=== PATIENT | male | born 1945 | race Two or more races ===

== ENCOUNTER 2020-05-17 07:47 | Inpatient (IN) | payer OTHER ==
[~2020-05-17] VITALS: Ht 177.8 cm; Wt 108.0 kg
[2020-05-17 09:40] LABS: Eosinophils # (auto) 0.1 10 ^3/uL (0-0.8); Hematocrit 46.2 % (41.0-53.0); Monocytes # (auto) 0.5 10 ^3/uL (0-1.3)
[2020-05-17 09:42] LABS: Basophils # (auto) 0.1 10 ^3/uL (0-0.2); Basophils % (auto) 0.9 % (0.0-2.0); Eosinophils % (auto) 2.5 % (0.0-7.0); Hemoglobin 15.7 g/dL (13.5-17.5); Lymphocytes # (auto) 1.1 10 ^3/uL (0.4-5.4); Mean Corpuscular Hemoglobin 34.9 pg (28.0-32.0); Mean Corpuscular Volume 102.7 fL (80.0-100.0); Monocytes % (auto) 8.4 % (0.0-12.0); Neutrophils # (auto) 4.2 10 ^3/uL (1.6-8.6); Neutrophils % (auto) 69.2 % (37.0-80.0); Platelet Count (auto) 151 10^3/uL (140-450); Red Cell Distribution Width 12.9 % (11.8-14.3)
[2020-05-17 10:00] LABS: Albumin 3.7 g/dL (3.4-5.0); Calcium 8.7 mg/dL (8.5-10.1); Potassium 3.8 mmol/L (3.5-5.1)
[2020-05-17 10:08] LABS: BUN/Creatinine Ratio 16.2; Bilirubin, Total 0.8 mg/dL (0.2-1.0); Total Protein 7.1 g/dL (6.4-8.2)
[2020-05-17] MEDS ORDERED: ASPirin 81 mg TAB PO ONE (10:30)
[2020-05-17] MEDS ORDERED: MECLIZINE HCL 25 MG TAB PO ONE (10:30)
[2020-05-17] MEDS ORDERED: ENOXAPARIN SOD 100 MG/1 ML SYRINGE SC ONE (10:30)
[2020-05-17] MEDS: SOD CHL 0.45% 1,000 ML IV SCH (14:55)
[2020-05-17] MEDS ORDERED: ONDANSETRON HCL 4 MG/2 ML VIAL IV PRN ×3 (15:00→15:45)
[2020-05-17] MEDS ORDERED: MORPHINE SULF INJ 2 MG/ML SYRINGE 1ML IV PRN ×3 (15:00→15:45)
[2020-05-17] MEDS ORDERED: ALUM & MAG HYDROX-SIMETH LIQ(MAALOX) 30 ML PO ONE (15:00)
[2020-05-17] MEDS ORDERED: DOCUSATE SOD 100 MG CAP PO PRN (15:00)
[2020-05-17] MEDS ORDERED: MORPHINE SULFATE 4 MG/ML SYR/VIAL IV PRN (15:00)
[2020-05-17] MEDS ORDERED: NITROGLYCERIN 0.4 MG SL TAB SL PRN ×3 (15:00→15:45)
[2020-05-17] MEDS ORDERED: ACETAMINOPHEN 325 MG TAB PO PRN (15:00)
[2020-05-17] MEDS ORDERED: LORazepam 0.5 MG TAB PO PRN (15:00)
[2020-05-17] MEDS ORDERED: HYDROcodone-ACET 5/325MG TAB PO PRN (15:00)
[2020-05-17] MEDS ORDERED: LISI2.5T47 PO (17:30)
[2020-05-17] MEDS ORDERED: ASPI-498 PO (17:30)
[2020-05-17] MEDS ORDERED: ATOR1TAB PO (17:30)
[2020-05-17] MEDS ORDERED: CLOP75TA41 PO (17:30)
[2020-05-17] MEDS ORDERED: ALUM & MAG HYDROX-SIMETH LIQ(MAALOX) 30 ML PO PRN (18:00)
[2020-05-17] MEDS ORDERED: hydrALAZINE HCL 20 MG/ML VL IV PRN (18:15)
[2020-05-17] MEDS ORDERED: METOPROLOL SUCCINATE XL 50 MG TAB PO ONE (18:15)
[2020-05-17 23:00] VITALS: BP 129/78
[2020-05-18] VITALS (8 sets, daily range): BP systolic 107–146; BP diastolic 64–81
[2020-05-18] MEDS: METOPROLOL TARTRATE 25 MG TAB PO SCH ×4 (00:01→23:12)
[2020-05-18 06:02] LABS: Basophils # (auto) 0 10 ^3/uL (0-0.2); Eosinophils # (auto) 0.2 10 ^3/uL (0-0.8); Hematocrit 42.7 % (41.0-53.0); Hemoglobin 14.8 g/dL (13.5-17.5); Lymphocytes # (auto) 1.7 10 ^3/uL (0.4-5.4); Lymphocytes % (auto) 36.8 % (10.0-50.0); Mean Corpuscular Hemoglobin 35.4 pg (28.0-32.0); Mean Corpuscular Hgb Conc. 34.6 g/dL (32.0-36.0); Mean Corpuscular Volume 102.3 fL (80.0-100.0); Monocytes # (auto) 0.4 10 ^3/uL (0-1.3); Monocytes % (auto) 8.7 % (0.0-12.0); Neutrophils # (auto) 2.2 10 ^3/uL (1.6-8.6); Neutrophils % (auto) 48.5 % (37.0-80.0); Nucleated Red Blood Cells % 0.1 %; Platelet Count (auto) 135 10^3/uL (140-450); Red Blood Cells 4.18 10^6/uL (4.5-5.90); Red Cell Distribution Width 12.8 % (11.8-14.3); White Blood Cell 4.6 10^3/uL (4.4-10.8)
[2020-05-18 06:12] LABS: Albumin 3.3 g/dL (3.4-5.0); Calcium 8.2 mg/dL (8.5-10.1); Magnesium 2.1 mg/dL (1.6-2.6); Potassium 3.6 mmol/L (3.5-5.1)
[2020-05-18 06:13] LABS: INR 1.08 (0.9-1.15); Partial Thromboplastin Time 28.8 sec (23.64-32.05)
[2020-05-18 06:17] LABS: BUN/Creatinine Ratio 22.6; Bilirubin, Total 1.1 mg/dL (0.2-1.0); Phosphorus 2.9 mg/dL (2.5-4.90); Total Protein 6.2 g/dL (6.4-8.2)
--- NOTE | 2020-05-18 07:00 | NUR ---
Opening Shift Note Received report on the patient. Awake lying in bed. Patient shows no signs of distress at this time. Discussed plan of care with the patient. Bed in lowest position, side rails up x2, and the call light is within reach.
[2020-05-18] MEDS: SOD CHL 0.45% 1,000 ML IV SCH (07:35)
[2020-05-18] MEDS ORDERED: ADENOSINE 93 MG in GIVE UN-DILUTED 0 ML IV STA (08:12)
[2020-05-18] MEDS ORDERED: DOCUSATE SOD 100 MG CAP PO SCH (10:00)
--- NOTE | 2020-05-18 12:10 | NUR ---
Dr Subramanian at bedside. No new orders received.
[2020-05-18 13:01] LABS: Urine WBC None Seen /hpf (0 - 3)
[2020-05-18 13:12] LABS: Urine Bacteria NONE SEEN /hpf (None Seen); Urine Blood Negative /uL (Negative); Urine Mucus FEW (None Seen); Urine Specific Gravity 1.026 (1.001-1.035)
[2020-05-18] MEDS: ASPirin 81 mg TAB PO SCH (13:12)
[2020-05-18] MEDS: LISINOPRIL 10 MG TAB PO SCH (13:13)
[2020-05-18] MEDS: CLOPIDOGREL BISULFATE 75 MG TAB PO SCH (13:13)
[2020-05-18 13:33] LABS: Alcohol, Urine < 3.0 mg/dL (0-10); Amphetamine Screen, Urine NEGATIVE (NEGATIVE); Barbiturate Scree,Urine NEGATIVE (NEGATIVE); Benzodiazephine Screen, Urine NEGATIVE (NEGATIVE); Cannabinoid Screen, Urine NEGATIVE (NEGATIVE); Cocaine Screen, Urine NEGATIVE (NEGATIVE); Opiate Scree,Urine NEGATIVE (NEGATIVE); Phencyclidine Screen, Urine NEGATIVE (NEGATIVE)
[2020-05-18] MEDS: ATORVASTATIN 20 MG TAB PO SCH ×2 (21:50)
[2020-05-19] VITALS (8 sets, daily range): BP systolic 102–155; BP diastolic 60–91
[2020-05-19] MEDS: SOD CHL 0.45% 1,000 ML IV SCH ×2 (00:48→18:28)
[2020-05-19 06:58] LABS: Basophils # (auto) 0.1 10 ^3/uL (0-0.2); Basophils % (auto) 1.1 % (0.0-2.0); Eosinophils # (auto) 0.2 10 ^3/uL (0-0.8); Hematocrit 43.8 % (41.0-53.0); Lymphocytes # (auto) 1.8 10 ^3/uL (0.4-5.4); Monocytes # (auto) 0.4 10 ^3/uL (0-1.3); Monocytes % (auto) 8.5 % (0.0-12.0); Neutrophils # (auto) 2.2 10 ^3/uL (1.6-8.6); Red Blood Cells 4.28 10^6/uL (4.5-5.90); White Blood Cell 4.7 10^3/uL (4.4-10.8)
[2020-05-19 07:00] LABS: Eosinophils % (auto) 4.8 % (0.0-7.0); Lymphocytes % (auto) 38.3 % (10.0-50.0); Mean Corpuscular Hemoglobin 34.9 pg (28.0-32.0); Mean Corpuscular Hgb Conc. 34.2 g/dL (32.0-36.0); Mean Corpuscular Volume 102.3 fL (80.0-100.0); Neutrophils % (auto) 47.3 % (37.0-80.0); Nucleated Red Blood Cells % 0.2 %; Platelet Count (auto) 141 10^3/uL (140-450); Red Cell Distribution Width 12.9 % (11.8-14.3)
[2020-05-19 07:16] LABS: Potassium 3.7 mmol/L (3.5-5.1)
[2020-05-19 07:23] LABS: INR 1.06 (0.9-1.15); Partial Thromboplastin Time 28.9 sec (23.64-32.05)
[2020-05-19 07:28] LABS: BUN/Creatinine Ratio 21.5; Calcium 8.5 mg/dL (8.5-10.1)
[2020-05-19] MEDS: METOPROLOL TARTRATE 25 MG TAB PO SCH ×2 (09:53→22:52)
[2020-05-19] MEDS: CLOPIDOGREL BISULFATE 75 MG TAB PO SCH (09:56)
[2020-05-19] MEDS: ASPirin 81 mg TAB PO SCH (09:56)
[2020-05-19] MEDS: LISINOPRIL 10 MG TAB PO SCH (09:57)
--- NOTE | 2020-05-19 10:28 | NUR ---
Gave patient belongings to [facility] to be locked up in the safe.
--- NOTE | 2020-05-19 10:48 | NUR ---
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 No signs of distress at this time.
--- NOTE | 2020-05-19 11:55 | NUR ---
Faxed information packet to [facility] [phone] requesting authorization for in patient stay, per Dr Subramanian's progress notes patient is not stable for transfer, progress notes were sent to [facility]
[2020-05-19] MEDS ORDERED: IOHEXOL 350 MG/ML 100ML IJ ONE (12:14)
[2020-05-19] MEDS ORDERED: LIDOCAINE 2%HCL (LOCAL ANESTH.) INJ 20ML MDV ONE (12:14)
[2020-05-19] MEDS ORDERED: ANGIOMAX 250 MG VIAL IV ONE (13:10)
[2020-05-19] MEDS ORDERED: HEPARIN SODIUM (PORCINE) 5000 UNITS/ML 1ML VIAL ONE (13:10)
[2020-05-19] MEDS ORDERED: VERAPAMIL 2.5MG/ML INJ 2ML VIAL IV ONE (13:11)
[2020-05-19] MEDS ORDERED: fentaNYL CITRATE 100 MCG/2 ML VL ONE (13:11)
[2020-05-19] MEDS ORDERED: SODIUM CHL 0.9% 50 ML ONE (13:11)
[2020-05-19] MEDS ORDERED: MIDAZOLAM HCL 1MG/1ML-2 ML VIAL ONE (13:11)
--- NOTE | 2020-05-19 14:05 | NUR ---
[facility] [phone] spoke with Linda isaacs, says patient has authorization for in patient stay 05/20/20, # [id number]
--- NOTE | 2020-05-19 15:03 | NUR ---
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 No signs of distress at this time.
[2020-05-19] MEDS: ATORVASTATIN 20 MG TAB PO SCH (22:52)
[2020-05-20 05:00] VITALS: BP_SYST 117; BP_SYST 118; BP_SYST 123; BP_DIAS 68; BP_DIAS 72; BP_DIAS 78
--- NOTE | 2020-05-20 07:50 | NUR ---
Opening Shift Note Assumed care of patient, who is alert and oriented x4. Ambulates independently with steady gait. Respirations are even and unlabored. No S/S of distress/SOB or pain. S/p LHC; dressing to right wrist is C/D/I. No hematoma, swelling or numbness noted or reported. Bed is low, locked with 2x side rails up. Call light is within reach. Instructed on POC and to call for assist PRN, will continue to monitor for changes Q1hr and PRN.
[2020-05-20 08:00] VITALS: BP 125/68
[2020-05-20 09:00] VITALS: BP 125/68
[2020-05-20] MEDS: ASPirin 81 mg TAB PO SCH (09:30)
[2020-05-20] MEDS: CLOPIDOGREL BISULFATE 75 MG TAB PO SCH (09:30)
[2020-05-20] MEDS: LISINOPRIL 10 MG TAB PO SCH (09:31)
[2020-05-20] MEDS: METOPROLOL TARTRATE 25 MG TAB PO SCH (09:31)
[2020-05-20] MEDS: SOD CHL 0.45% 1,000 ML IV SCH (09:35)
[2020-05-20 13:00] VITALS: BP 107/65
[2020-05-20 13:17] VITALS: BP 125/68
--- NOTE | 2020-05-20 14:55 | NUR ---
Discharge instructions given as ordered. Encourage to follow up with PMD as instructed. All questions and concerns addressed. Patient verbalized understanding. Patient encouraged to follow up with [facility]CP and federal judge. IV removed with catheter intact, pressure dressing applied. Telemetry unit returned to ICU. Patient taken to vehicle via wheelchair with all personal belongings, accompanied by staff. No distress noted at time of departure.
== END 2020-05-20 14:56 | disposition home or self-care (01) | DRG 250 ==
LOC: ER 07:47 → TELE 07:48 → TELE-WESTW 23:58
PROVIDERS: ADMIT Hospitalist; ATTEND Family Medicine
PROC: 4A02XM4 Measurement of Cardiac Total Activity, External Approach (ICD-10-PCS; principal; 2020-05-19)
PROC: 02703ZZ Dilation of Coronary Artery, One Artery, Percutaneous Approach (ICD-10-PCS; 2020-05-19)
PROC: 02C03ZZ Extirpation of Matter from Coronary Artery, One Artery, Percutaneous Approach (ICD-10-PCS; 2020-05-19)
PROC: 4A023N7 Measurement of Cardiac Sampling and Pressure, Left Heart, Percutaneous Approach (ICD-10-PCS; 2020-05-19)
PROC: B2111ZZ Fluoroscopy of Multiple Coronary Arteries using Low Osmolar Contrast (ICD-10-PCS; 2020-05-19)
PROC: B2151ZZ Fluoroscopy of Left Heart using Low Osmolar Contrast (ICD-10-PCS; 2020-05-19)
DX: T82.855A Stenosis of coronary artery stent, initial encounter (principal); I21.4 Non-ST elevation (NSTEMI) myocardial infarction; I25.810 Atherosclerosis of coronary artery bypass graft(s) without angina pectoris; I16.1 Hypertensive emergency; R42 Dizziness and giddiness; I10 Essential (primary) hypertension; R79.89 Other specified abnormal findings of blood chemistry; R55 Syncope and collapse; E66.9 Obesity, unspecified; E78.5 Hyperlipidemia, unspecified; I25.10 Atherosclerotic heart disease of native coronary artery without angina pectoris; Z79.02 Long term (current) use of antithrombotics/antiplatelets; Z95.5 Presence of coronary angioplasty implant and graft; Z79.899 Other long term (current) drug therapy; Z68.34 Body mass index [BMI] 34.0-34.9, adult; Y84.0 Cardiac catheterization as the cause of abnormal reaction of the patient, or of later complication, without mention of misadventure at the time of the procedure; Y92.89 Other specified places as the place of occurrence of the external cause; I25.2 Old myocardial infarction
CPT/HCPCS: 36415; 70450; 71046; 78452; 80048; 80053; 80061; 80307; 81001; 82565; 83036; 83735; 83880; 84100; 84443; 84484; 85025; 85610; 85730; 87040; 87086; 92933; 93005; 93017; 93306; 93458; 93886; 99152; 99153; 99291; C1887; G0378; J0153; J2250

== ENCOUNTER 2020-09-07 17:46 | Emergency (ER) | payer OTHER ==
[~2020-09-07] VITALS: Ht 177.8 cm; Wt 99.8 kg
[~2020-09-07 17:46] MED LIST: ASPI-498 PO; ATOR1TAB PO; CLOP75TA41 PO; LISI2.5T47 PO
[2020-09-07 18:24] LABS: Eosinophils # (auto) 0.2 10 ^3/uL (0-0.8); Hemoglobin 15.9 g/dL (13.5-17.5); Monocytes # (auto) 0.4 10 ^3/uL (0-1.3); Neutrophils # (auto) 3.1 10 ^3/uL (1.6-8.6); Platelet Count (auto) 161 10^3/uL (140-450); Red Blood Cells 4.52 10^6/uL (4.5-5.90)
[2020-09-07 18:26] LABS: Basophils # (auto) 0.1 10 ^3/uL (0-0.2); Basophils % (auto) 0.9 % (0.0-2.0); Eosinophils % (auto) 3.1 % (0.0-7.0); Hematocrit 46.5 % (41.0-53.0); Lymphocytes % (auto) 34.4 % (10.0-50.0); Mean Corpuscular Hemoglobin 35.3 pg (28.0-32.0); Mean Corpuscular Hgb Conc. 34.3 g/dL (32.0-36.0); Mean Corpuscular Volume 102.8 fL (80.0-100.0); Monocytes % (auto) 7.8 % (0.0-12.0); Neutrophils % (auto) 53.8 % (37.0-80.0); Nucleated Red Blood Cells % 0.1 %; White Blood Cell 5.8 10^3/uL (4.4-10.8)
[2020-09-07 18:39] LABS: INR 1.04 (0.9-1.15); Partial Thromboplastin Time 28.7 sec (23.0-31.2)
[2020-09-07 18:46] LABS: Albumin 3.9 g/dL (3.4-5.0); Calcium 8.8 mg/dL (8.5-10.1); Magnesium 2.4 mg/dL (1.6-2.6); Potassium 3.7 mmol/L (3.5-5.1)
[2020-09-07 18:53] LABS: BUN/Creatinine Ratio 20.4; Bilirubin, Total 1.2 mg/dL (0.2-1.0); Total Protein 7.3 g/dL (6.4-8.2)
[2020-09-07] MEDS ORDERED: ASPirin 81 mg TAB PO ONE (19:00)
[2020-09-08] MEDS ORDERED: NITROGLYCERIN 0.2MG/HR TOPICAL PATCH TD ONE (01:00)
[2020-09-08] MEDS ORDERED: ENOXAPARIN SOD 100 MG/1 ML SYRINGE SC ONE (01:00)
[2020-09-08 07:41] VITALS: BP 141/85
== END 2020-09-08 08:43 | disposition short-term general hospital (02) ==
LOC: ER 17:46
DX: I20.9 Angina pectoris, unspecified (principal); I10 Essential (primary) hypertension; I25.2 Old myocardial infarction; I25.10 Atherosclerotic heart disease of native coronary artery without angina pectoris; Z79.82 Long term (current) use of aspirin; Z79.899 Other long term (current) drug therapy
CPT/HCPCS: 36415; 71046; 80053; 83735; 83880; 84484; 85025; 85610; 85730; 93005; 96372; 99285; J1650